=== PATIENT | female | born 1980 | race Caucasian/White ===

== ENCOUNTER → 2018-07-29 13:55 | Outpatient (CLI) | payer SELFPAY ==
[2018-08-03 14:25] LABS: HPV Reflexed? NOT INDICATED
== END ==
PROVIDERS: Visit Provider Obstetrics & Gynecology
DX: Z12.4 Encounter for screening for malignant neoplasm of cervix (principal)
CPT/HCPCS: 87624; 88175; G0145

== ENCOUNTER → 2019-04-15 13:42 | Outpatient (CLI) | payer SELFPAY ==
--- NOTE | 2019-04-15 11:30 | EMB_PTH ---
PATIENT: KUSHAL MONTES LOC: [facility] U#:[id number] AGE/SX: 44/F ROOM: RE04/15/[address]: Dr. Richar Milligan MD : 1980 BED: DIS: SPEC #: [id number] RECD: 04/15/19 13:40 STATUS: NELSY SCOOTER #: [id number] LYNSEY: 04/15/19 11:[address]: Richar Milligan DEPT: SURGICAL PATHOLOGY RECD BY: Miguelito Chau ENTERED: 04/15/19 13:48 SP TYPE: ENDOM BX/C LUZ DR: Haily Primary Care Phys Tissues: Endometrium, NOS Procedures: Surgery Specimen Level IV HEADER OPERATION: Endometrial biopsy PRE-OP DIAGNOSIS: N92.0 TISSUE SUBMITTED: Endometrial biopsy MICROSCOPIC DIAGNOSIS Endometrial biopsy: Proliferative endometrium. SJ:yael 04/16/19 MICROSCOPIC DESCRIPTION Slides are reviewed. GROSS DESCRIPTION Received in fixative is one container labeled with the patient's name and designated EM biopsy. The specimen consists of multiple fragments of hemorrhagic soft tissue that in aggregate measure 3 x 2.5 x 0.3 cm. The specimen is totally submitted in one cassette. / SJ:rg 04/15/19 TC:4 CPT: 90255
== END ==
PROVIDERS: Referring Provider Obstetrics & Gynecology; Visit Provider Obstetrics & Gynecology
DX: N92.0 Excessive and frequent menstruation with regular cycle (principal)
CPT/HCPCS: 88305

== ENCOUNTER 2019-05-13 07:05 | Day surgery (SDC) | payer SELFPAY ==
[2019-05-07 11:22] LABS: Hematocrit 39.3 % (37-47); Mean Corp Hgb Conc 33.1 g/dL (32-36); Mean Corpuscular Hgb 28.6 pg (27.0-32.0); Mean Corpuscular Volume 86.6 fL (81-99); Mean Platelet Vol. 8.9 fl (6.2-12.0); Platelet Count 313 K/mm3 (150-450); RBC Distribution Width CV 14.2 % (11.6-14.6); RBC Distribution Width SD 44.6 fl (35.1-43.9); Red Blood Count 4.54 M/mm3 (4.2-5.4); White Blood Count 8.4 K/mm3 (4.4-11.0)
[2019-05-07 11:35] LABS: International Normalized Ratio 1.1; Prothrombin Time (Protime)PT. 13.5 SECONDS (11.7-14.9)
[2019-05-07 11:36] LABS: Partial Thromboplast Time 32.9 Seconds (24.1-36.2)
[2019-05-07 12:21] LABS: Thyroid Stim Hormone (TSH) 1.89 uIU/mL (0.358-3.74)
--- NOTE | 2019-05-12 14:54 | PCM.HP.BLA ---
History and Physical Date of Admission: 05/13/19 Surgical History and Physical Shannan Suarez, a 38 year old female 5 0 1 0 5, presents for HTA, Hysteroscopy and D and C on May 13, 2019 at 8:30. -- Menorrhagia -- Heavy long Menses that started in June. Heavy Bleeding, clots which began 1 year. Shannan claims it started gradually and has been present worsened in last 2 months. It occurs with menses. It is located in the vagina. Shannan characterizes it to be non-radiating. Shannan characterizes the quality heavy bleeding,clots,cramping,. Severity is moderate and not improving; Additional comments are: u/s 08/02 without polyps or submucous fibroids. MEDICATIONS HISTORY: Current medications prescribed by our practice are: 1. Provera 10 mg tablet, One pill by mouth once a day for the last 10 days of each month Patient is also takin. buspirone 10 mg tablet, 1 to 3 times daily 2. risperidone 2 mg tablet, One pill by mouth once a day at hs 3. sertraline 100 mg tablet, Two po once daily 4. trazodone 100 mg tablet, One pill by mouth once a day at hs ALLERGIES: Phenergen, Very fidgety, Codeine, Fidgety, Codeine, Irritability, Phenergan and Irritability Infections - Chicken pox Illnesses - none Accidents - None Hospitalizations - Childbirth Review of Systems: GENERAL - Denies fever, or chills SKIN - Denies skin changes EYES - Denies visual changes EARS - Denies difficulty hearing NOSE - Denies nasal congestion or bleeding MOUTH - Denies sore throat or difficulty swallowing NECK - Denies pain or swelling RESPIRATORY - Denies shortness of breath or wheezing CARDIOVASCULAR - Denies palpitations or chest pain GASTROINTESTINAL - Denies nausea, vomiting, diarrhea, constipation GENITOURINARY - Denies dysuria, frequency of urination, incontinence of urine MUSCULOSKELETAL - Denies joint or muscle pain NEUROLOGICAL - Denies localized numbness or weakness PSYCHIATRIC - Denies depression or anxiety ENDOCRINE - Denies heat or cold intolerance, weight loss or gain HEMATO-IMMUNOLOGIC - Denies excesive bleeding with cuts SOCIAL HISTORY: Alcohol Use - None Smoking - Never Diet - no special diet Lifestyle - moderate stress lifestyle and Exercise - very active Seat Belt Use - always Employer - Director Of Direct Marketing Illicit Drug Use - None Sexual Activity - Spouse-Sig Other Name - Price Spouse-Sig Other Occupation - [employer] Children Name(s) - Kevon, Summer, Oriana, Rudolph Malcolm(16) Control - Prior Tubal FAMILY HISTORY: Mother: DM II and Hypertension. MENSTRUAL HISTORY: LMP Known?- DefiniteAmount/Duration - 2 weeks, Regularity - Irregular and missed periods, Frequency - variable days, LMP - 04/15/19, Age Onset Menarche - 14 PAST PREGNANCIES: Total Pregnancies - 6; Full Term Pregnancies - 5; Premature - 0; Abortions, Induced - 0; Abortions, Spontaneous - 1; Ectopics - 0; Multiple Births - 0; Living Children - 5 SURGICAL HISTORY: 1. 09/13/2013 ; Richar Milligan M.D. - 2. 08/04/2007 ; Dr. Hurst - 3. 06/12/2006 ; Dr. Hurst - 4. T and A, 1997 ; Dr. Lorenzana - 5. Appendectomy, 2005 ; Emory Koch - 6. 09/17/2011 ; Richar Milligan M.D. - 7. 07/11/2015 and Tubal ; Richar Milligan M.D. - PHYSICAL EXAM BP- 104/78 Sitting, Right arm, large cuff Temp- 97.6 Taken Orally Weight- 218.95501 lbs Height- 62.75 inch BMI:39.15 CONSTITUTIONAL - NAD, well nourished, and well developed SKIN - No rash, lesions, or ulcers HEENT - Normocephalic, PERRLA, EOMI NECK - No nodes, no nuchal rigidity and thyroid normal size and texture LYMPH NODES - Palpation of lymph nodes in neck and groins within normal limits LUNGS - CTA x2 without wheezes, crackles or rales CARDIAC - Regular rate and rhythm without rubs, murmurs, or gallops ABDOMEN - Without hepatosplenomegaly, distention, masses, rebound, or guarding; normal bowel sounds; no hernias EXTREMITIES - No edema or calf tenderness NEUROLOGICAL - Cranial nerves II-XII grossly intact PSYCHIATRIC - A and O to time, place, person, mood and affect External Genital Vagina - non-tender without lesions Urethra/Urethral Meatus - non-tender Bladder - non-tender Vagina - vaginal clifford are pink and moist without loss of rugae and no evidence of atropy Cervix - without cervical motion tenderness and has normal size and features without evident lesions Uterus - multiparous size 6 cm & wt 75-125 g Adnexa - clear without masses or tenderness ASSESSMENT/PLAN: 1. Menorrhagia Heavy irregular menses likely due to anovulatory bleeding. Discussed options including intermittant Provera withdrawal vs proceeding with endometrial ablation. Desires proceeding with surgery. Discussed RBAs. EMBx and TSH OK.
[2019-05-13] VITALS (17 sets, daily range): BP systolic 95–119; BP diastolic 52–77; PULSE 55–90; RESP 16–18; TEMP 36.3–36.7; O2SAT 90–97; BMI 36.8
[2019-05-13 07:36] LABS: Internal QC Validated? YES +Cl - CLEAR BKGD; Pregnancy, Urine Negative Negative
[2019-05-13] MEDS: Lactated Ringers 1,000 ML 100 ML IV (07:38)
--- NOTE | 2019-05-13 08:38 | DCINST_ITS ---
Discharge Diet: No Restrictions Discharge Activity: Return to Normal Activity, May Shower, May Take a Tub Bath May resume sexual activity in: 4 weeks Call your doctor if you observe: Fever of 101 or Higher, Inability to urinate, Inability to have a bowel movement, Using more than one pad per hour Allergies/Adverse Reactions: Allergies codeine Adverse Reaction (Verified 05/05/19 13:59) not myself promethazine [From Phenergan] Adverse Reaction (Verified 05/05/19 13:59) not myself Medications to take at Discharge Risperidone [Risperdal] 3 mg PO QHS 05/05/19 Sertraline HCl [Zoloft] 200 mg PO DAILY 05/05/19 Oxycodone [Oxyir] 5 mg PO Q6H PRN PRN 7 Days #10 tab 05/13/19 The following prescriptions were given: Oxycodone [Oxyir] 5 mg PO Q6H PRN PRN 7 Days #10 tab PRN Reason: Pain Score 6-10/10 Transmission Status: Sent to [place], [place] Primary Care Physician: Ariel Jacobsen MD [Primary Care Provider] - Test Results: Test results from this visit will be discussed in further detail at your follow- up appointment, if applicable. Please Follow Up With: Richar Milligan MD When: 3 to 4 weeks
--- NOTE | 2019-05-13 08:39 | OP.PCM_ITS ---
Report of Operation Date of Procedure: 05/13/19 Pre-Operative Diagnosis: Menorrhagia Post-Operative Diagnosis: Menorrhagia Surgery/Procedure Performed:: Diagnostic Hysteroscopy, Dilation and Curettage, Hydrothermal Ablation Description of Surgical Findings:: 14 cm endometrial cavity without polyps or fibroids. Uterus sounded to 12 cm. Long cervix. Cervix high in vagina which would make laparoscopic-assisted vaginal hysterectomy technically difficult but robotic assisted vaginal hysterectomy likely feasible if hysterectomy were necessary. Type of Anesthesia:: General - LMA Anesthesiologist: Jb Chen Specimen's removed: Endometrial curettings Estimated Blood Loss (mL): Minimal Fluids Replaced: Crystalloid Description of Procedure: Surgeon: Richar Milligan MD, FACOG Indication: This is a 38 year old patient who has been having problems with extremely heavy menses. Conservative measures have not been helpful. She had a prior tubal ligation. Endometrial sampling was benign and pelvic ultrasound showed that ablation may be helpful. Pt has been counseled regarding the ris ks, benefits and alternatives of this procedure and all questions answered. She understands that only about half of patients will have amenorrhea after this procedure. Procedure: Patient taken to the operating room where after induction of general anesthesia the patient was prepped and draped in the usual sterile fashion. Bladder was drained of urine with a catheter. Anterior cervix grasped and cervix was dilated to about 17 [place] Islander size. Hysteroscopic hydrothermal ablation (HTA) unit was place in the cervix and the above findings were noted. HTA unit was removed and the uterus was gently curretted removing all contents. An HTA ablation cycle was then carried out at about 90 degrees Centigrade for 10 minutes with virtually no fluid loss during the procedure. It was necessary to place a tenaculum on the posterior aspect of the cervix to completely seal the ablation unit. After an appropriate cool down the HTA unit was removed with minimal bleeding noted. The patient tolerated the procedure well and was taken to the recovery room in satisfactory condition. Sponge, instruments and needle counts were all correct. There were no apparent complications of the surgery. Cefotan 2 gms IV was given prior to the procedure. Grafts/Implants Used: None - Complications None - Admit VTE Documentation VTE Present on Admission: Yes VTE Mechan Device Prophylaxis: SCD's
--- NOTE | 2019-05-13 08:40 | EMB_PTH ---
PATIENT: KUSHAL MONTES [place] [facility] [place] U[place][id number] AGE/SX: 38/F ROOM: RE05/13/[address]: Dr. Richar Milligan MD : 1980 BED: DIS: 05/13/2019 SPEC #: [id number] RECD: 05/13/19 13:02 STATUS: NELSY SCOOTER #: [id number] LYNSEY: 05/13/19 08:[address]: Richar Milligan DEPT: SURGICAL PATHOLOGY RECD BY: Miguelito Chau ENTERED: 05/13/19 13:22 SP TYPE: ENDOM BX/C LUZ DR: Dr. Ariel Jacobsen MD Tissues: Endometrium, NOS Procedures: Surgery Specimen Level IV HEADER OPERATION: Hysteroscopy, D & C hydroablation PRE-OP DIAGNOSIS: Menorrhagia TISSUE SUBMITTED: Endometrial curettings MICROSCOPIC DIAGNOSIS Endometrial curettings: Fragments of benign endometrial polyp with simple endometrial hyperplasia without atypia. Fragments of endometrial tissue with mildly disordered proliferative endometrium. See comment. AMINA:yael 05/14/19 COMMENT Please make reference to previous specimen ([id number]) endometrial biopsy with diagnosis of proliferative endometrium. Case has been reviewed in consultation with Dr. Darden who concurs with the above diagnosis. IDC:AM MICROSCOPIC DESCRIPTION Slides are reviewed. GROSS DESCRIPTION Received in fixative is one container labeled with the patient's name and designated endometrial curettings. The specimen consists of multiple irregular fragments of hemorrhagic soft tissue mixed with blood clot that in aggregate measure 5 x 3 x 0.3 cm. Also present in the container are two pieces of esteban-pink polyp measuring 2.5 x 1 x 1 cm and 2 x 1 x 0.3 cm. Cassette 1 contains the smaller polyp and cassette contains the bisected polyp. The entire specimen is submitted in two cassettes. / AMINA:yael 05/13/19 TC: 5 CPT: 50700
[2019-05-13] MEDS: oxyCODONE 5 MG Tablet PO (11:58)
== END 2019-05-13 12:25 | disposition home or self-care (01) ==
LOC: SDC 07:09 → AC 07:09
PROVIDERS: Anesthesiology; PCP Family Medicine; Referring Provider Obstetrics & Gynecology; Visit Provider Obstetrics & Gynecology
PROC: 0U5B8ZZ Destruction of Endometrium, Via Natural or Artificial Opening Endoscopic (ICD-10-PCS; CPT 58563; principal; 2019-05-13 08:25)
DX: N85.01 Benign endometrial hyperplasia (principal); N84.0 Polyp of corpus uteri; Z88.8 Allergy status to other drugs, medicaments and biological substances; Z88.5 Allergy status to narcotic agent; Z79.899 Other long term (current) drug therapy
CPT/HCPCS: 00952; 58563; 36415; 81025; 84443; 85027; 85610; 85730; 86850; 86900; 86901; 88305; J7120; J2405

== ENCOUNTER → 2020-10-24 | Outpatient (CLI) | payer SELFPAY ==
[2019-05-13 07:32] VITALS: BMI 36.8
[2020-10-28 12:51] LABS: HPV Reflexed? NOT INDICATED
== END | disposition home or self-care (01) ==
LOC: LABSPEC 10-25 08:53
PROVIDERS: PCP Family Medicine; Visit Provider Obstetrics & Gynecology
DX: Z12.4 Encounter for screening for malignant neoplasm of cervix (principal)
CPT/HCPCS: 88175; G0145

== ENCOUNTER → 2020-11-29 11:23 | Outpatient (CLI) | payer OTHER, SELFPAY ==
[2020-11-29 12:19] LABS: Hematocrit 38.8 % (37-47); Hemoglobin 13.3 g/dL (12.0-15.0)
== END ==
PROVIDERS: PCP Family Medicine; Visit Provider Obstetrics & Gynecology
DX: N92.0 Excessive and frequent menstruation with regular cycle (principal)
CPT/HCPCS: 36415; 85014; 85018

== ENCOUNTER 2020-12-11 15:33 | Observation (INO) | payer SELFPAY ==
[2019-05-13 07:32] VITALS: BMI 36.8
[2020-12-05 11:47] LABS: Hematocrit 40.4 % (37-47); Hemoglobin 13.3 g/dL (12.0-15.0); Mean Corp Hgb Conc 32.9 g/dL (32-36); Mean Corpuscular Hgb 30.6 pg (27.0-32.0); Mean Corpuscular Volume 92.9 fL (81-99); Mean Platelet Vol. 8.9 fl (6.2-12.0); Platelet Count 512 K/mm3 (150-450); RBC Distribution Width CV 13.5 % (11.6-14.6); RBC Distribution Width SD 45.1 fl (35.1-43.9); Red Blood Count 4.35 M/mm3 (4.2-5.4); White Blood Count 9.8 K/mm3 (4.4-11.0)
[2020-12-05 11:54] LABS: International Normalized Ratio 1.1; Prothrombin Time (Protime)PT. 13.4 SECONDS (11.7-14.9)
[2020-12-05 11:55] LABS: Partial Thromboplast Time 28.8 Seconds (24.1-36.2)
[2020-12-05 12:13] LABS: Magnesium 2.5 mg/dL (1.6-2.6)
[2020-12-06 09:51] LABS: Creatinine, Serum 0.78 mg/dL (0.55-1.02); EST Glomerular Filtration Rate 88 mL/min (>60); Est Glom Filt Rate - Afr Amer 107 mL/min (>60)
--- NOTE | 2020-12-08 13:48 | PCM.HP.BLA ---
History and Physical Date of Admission: 12/11/20 Surgical History and Physical Shannan Suarez, a 40 year old female 5 0 1 0 5, presents for RAVH/BS on December 11, 2020 at 7:30. -- Heavy Menses; Menorrhagia -- Heavy long Menses that started in June. Patient has a history of simple endometrial hyperplasia noted at the time of her endometrial ablation. Patient denies any intermenstrual spotting. Shannan is here for preop RAVH/BS. Menses long and heavy, used aygestin taper. Heavy Bleeding, clots which began 1 year ago. Shannan claims it started gradually and has been present worsened in last 2 months. It occurs with menses. It is located in the vagina. Shannan characterizes the quality heavy bleeding,clots,cramping. Severity is moderate and not improving. MEDICATIONS HISTORY: Current medications prescribed by our practice are: 1. Aygestin 5 mg tablet, taper instructions called to pharmacy Patient is also takin. risperidone 2 mg tablet, One pill by mouth once a day at hs 2. sertraline 100 mg tablet, Two po once daily 3. trazodone 100 mg tablet, One pill by mouth once a day at hs ALLERGIES: Phenergen, Very fidgety, Codeine, Fidgety, Codeine, Irritability, Phenergan and Irritability Infections - Chicken pox Illnesses - none Accidents - None Hospitalizations - Childbirth Review of Systems: GENERAL - Denies fever, or chills SKIN - Denies skin changes EYES - Denies visual changes EARS - Denies difficulty hearing NOSE - Denies nasal congestion or bleeding MOUTH - Denies sore throat or difficulty swallowing NECK - Denies pain or swelling RESPIRATORY - Denies shortness of breath or wheezing CARDIOVASCULAR - Denies palpitations or chest pain GASTROINTESTINAL - Denies nausea, vomiting, diarrhea, constipation GENITOURINARY - Denies dysuria, frequency of urination, incontinence of urine MUSCULOSKELETAL - Denies joint or muscle pain NEUROLOGICAL - Denies localized numbness or weakness PSYCHIATRIC - Denies depression or anxiety ENDOCRINE - Denies heat or cold intolerance, weight loss or gain HEMATO-IMMUNOLOGIC - Denies excesive bleeding with cuts SOCIAL HISTORY: Alcohol Use - None Smoking - Never Diet - no special diet Lifestyle - moderate stress lifestyle and Exercise - very active Seat Belt Use - always Employer - Automobile Damage [employer] Illicit Drug Use - None Sexual Activity - Spouse-Sig Other Name - Price Spouse-Sig Other Occupation - [employer] Children Name(s) - Kevon, Summer, Oriana, Rudolph Malcolm(16) Control - Prior Tubal FAMILY HISTORY: Mother: DM II and Hypertension. MENSTRUAL HISTORY: LMP Known?- AblationAmount/Duration - excess amount and 7 to 10 days, Regularity - Irregular and missed periods, Frequency - variable days, LMP - 11/16/20, Age Onset Menarche - 14 PAST PREGNANCIES: Total Pregnancies - 6; Full Term Pregnancies - 5; Premature - 0; Abortions, Induced - 0; Abortions, Spontaneous - 1; Ectopics - 0; Multiple Births - 0; Living Children - 5 SURGICAL HISTORY: 1. 09/13/2013 ; Richar Milligan M.D. - 2. 08/04/2007 ; Dr. Hurst - 3. 06/12/2006 ; Dr. Hurst - 4. T and A, 1997 ; Dr. Lorenzana - 5. Appendectomy, 2005 ; Emory Koch - 6. 09/17/2011 ; Richar Milligan M.D. - 7. 05/13/2019 dx hysteroscopy, D and C, HTA ; Richar Milligan M.D. - 8. 07/11/2015 and Tubal ; Richar Milligan M.D. - PHYSICAL EXAM BP- 136/84 Sitting, Right arm, regular cuff Weight- 198.76423 lbs Height- 62.75 inch BMI:35.4 CONSTITUTIONAL - NAD, well nourished, and well developed SKIN - No rash, lesions, or ulcers HEENT - Normocephalic, PERRLA, EOMI NECK - No nodes, no nuchal rigidity and thyroid normal size and texture LYMPH NODES - Palpation of lymph nodes in neck and groins within normal limits LUNGS - CTA x2 without wheezes, crackles or rales CARDIAC - Regular rate and rhythm without rubs, murmurs, or gallops BREAST - No dominant masses, no tenderness, no axillary adenopathy, no nipple discharge, no skin changes ABDOMEN - Without hepatosplenomegaly, distention, masses, rebound, or guarding; normal bowel sounds; no hernias EXTREMITIES - No edema or calf tenderness NEUROLOGICAL - Cranial nerves II-XII grossly intact PSYCHIATRIC - A and O to time, place, person, mood and affect External Genitial Vagina - non-tender without lesions Urethra/Urethral Meatus - non-tender Bladder - non-tender Vagina - vaginal clifford are pink and moist without loss of rugae and no evidence of atropy and blood in vagina Cervix - without cervical motion tenderness and has normal size and features without evident lesions Uterus - multiparous size 6 cm & wt 75-125 g Adnexa - clear without massess or tenderness ASSESSMENT/PLAN: Menorrhagia Patient is status post endometrial ablation and had simple hyperplasia at the time of her D and C at the time of ablation. We discussed options for treatment and the patient desires that we proceed with hysterectomy. Plan robotic assisted vaginal hysterectomy and bilateral salpingectomy. Discussed risks, benefits, and alternatives and all questions were answered.
[2020-12-11] VITALS (35 sets, daily range): BP systolic 110–148; BP diastolic 51–91; PULSE 84–124; RESP 12–24; TEMP 36.6–37.5; O2SAT 92–99; BMI 36.6
--- NOTE | 2020-12-11 | HYST_PTH ---
PATIENT: KUSHAL MONTES LOC: [facility] U#:[id number] AGE/SX: 40/F [place] [facility] [id number] RE12/11/[address]: Dr. Richar Milligan MD : 1980 BED: 1 DIS: 12/12/2020 SPEC #: [id number] RECD: 12/11/20 13:12 STATUS: NELSY REIsaias #: [id number] LYNSEY: 12/11/20 00:[address]: Richar Milligan DEPT: SURGICAL PATHOLOGY RECD BY: Aleksandar Blackman ENTERED: 12/11/20 13:12 SP TYPE: HYSTERECT OTHR DR: Dr. Ariel Jacobsen MD Tissues: Uterus, NOS Procedures: Surgery Specimen Level V HEADER OPERATION: ERAS, lap robotic hysterectomy, bilateral salpingectomy PRE-OP DIAGNOSIS: Menorrhagia TISSUE SUBMITTED: Cervix, uterus and bilateral fallopian tubes MICROSCOPIC DIAGNOSIS Cervix, uterus and bilateral fallopian tubes, hysterectomy and bilateral salpingectomy: Cervix ? mild chronic inflammation. - Reactive epithelial changes. Endometrium ? weakly proliferative endometrium. Myometrium ? intramural leiomyomas (largest measuring 1 cm in greatest dimension). - Focal adenomyosis. Bilateral fallopian tubes - no pathologic diagnosis. SJ:yael 12/12/2020 COMMENT Please make reference to previous specimen ([id number]) endometrial curettings with diagnosis of ?fragments of benign endometrial polyp with simple endometrial hyperplasia without atypia and fragments of endometrial tissue with mildly disordered proliferative endometrium.? MICROSCOPIC DESCRIPTION Slides are reviewed. GROSS DESCRIPTION Received in fixative is one container labeled with the patient's name and designated uterus, cervix and bilateral fallopian tubes. The specimen consists of a hysterectomy specimen consisting of uterus with cervix and attached bilateral fallopian tubes. The uterus with cervix weighs 195 gm and measures 11.5 x 8 x 5.5 cm. The serosal surface is esteban, glistening. The ectocervical mucosa is unremarkable. The external os is circular in contour. The endocervical canal measures 4 cm in length and the endocervical mucosa is unremarkable. The triangular endometrial cavity measures 7 cm in length and up to 3 cm in width. The endometrium is without any mass lesion and measures 0.1 cm in thickness. Sections of the uterine wall reveal multiple nodular masses. The largest mass measures 1 cm in greatest dimension. The uterine wall measures up to 2.5 cm in thickness. Sections of these masses reveal esteban whorled cut surfaces without areas of hemorrhage, necrosis or cystic degeneration. The right fallopian tube measures 8 cm in length and 0.7 cm in diameter. The fimbrial end is identified. The fallopian tube is interrupted in the middle consistent with previous tubal occlusion. A Filshie clip is also noted and appears intact. Sections reveal unremarkable cut surfaces. The left fallopian tube measures 7 cm in length and 0.5 cm in diameter. It is interrupted in the middle consistent with previous tubal occlusion. No Filshie clip is identified in this fallopian tube. Melangeur Operator sections are submitted in nine cassettes as follows: 1??anterior cervix, 2 - posterior cervix, 3 & 4 - anterior uterine wall, 5 & 6 - posterior uterine wall, 7??nodular masses, 8 - right fallopian tube, 9 - left fallopian tube. / AMINA:yael 12/11/20 TC:1 CPT: 17563
[2020-12-11 06:14] LABS: Internal QC Validated? YES +Cl - CLEAR BKGD; Pregnancy, Urine Negative Negative
[2020-12-11] MEDS: Acetaminophen 500 MG Tablet 1000 MG PO ×2 (06:16→18:16)
[2020-12-11] MEDS: Gabapentin 600 MG Tablet PO (06:16)
[2020-12-11] MEDS: Lactated Ringers 1,000 ML 40 ML IV (06:22)
[2020-12-11 07:00] LABS: Bedside Glucose 102 mg/dL (70-110)
[2020-12-11] MEDS: Cefazolin 2 GM in 0.9% Normal Saline 100 ML IV (07:24)
--- NOTE | 2020-12-11 07:36 | OP.PCM_ITS ---
Report of Operation Date of Procedure: 12/11/20 Pre-Operative Diagnosis: Menorrhea Status Post Endometrial Ablation, Simple End ometrial Hyperplasia Post-Operative Diagnosis: Menorrhea Status Post Endometrial Ablation, Simple Endometrial Hyperplasia Surgery/Procedure Performed:: Robotic Assisted Vaginal Hysterectomy and Bilateral Salpingectomy Description of Surgical Findings:: 12 cm uterus with normal-appearing fallopian tubes and ovaries. Adhesions of the anterior abdominal wall to the uterus. Filshie clips from prior tubal ligation. Surgeon: Richar Milligan classifier operator: Kel Ocampo Type of Anesthesia: General (Endotracheal) Anesthesiologist: Claudia Pennington Specimen's removed: Uterus and bilateral fallopian tubes Drains: Bella to straight drain Estimated Blood Loss (mL): Minimal Fluids Replaced: Crystalloid Description of Procedure: Surgeon: Richar Milligan MD, FACOG Indication: This is a 40 year old patient who has been having problems with heavy periods despite previous endometrial ablation. She also had a previous C- section and was noted to have simple endometrial hyperplasia at the time of her ablation. Conservative measures have not been helpful. The patient has been counseled regarding the risks, benefits and alternatives of this procedure including the possibility of bleeding, infection, and injury to surrounding structures such as bowel bladder and all questions were answered. She understands that if BSO is needed that she will need to be on HRT for an indefinite period of time. Procedure: Pt taken to the operating room where, after induction of general anesthesia, the patient was prepped and draped in the usual sterile fashion and placed on a non-slip Huggy-u-vac device. Trendelenburg test was satisfactory. Bladder was drained of urine with a Bella catheter which was left in place. Anterior cervix grasped and cervix was dilated to about 3-4 mm. Uterus sounded to 8 cms. 0-Vicryl suture was placed at the 3:00 and 9:00 position of the cervix. A small Advincula Actuarial Director Uterine Manipulator was then placed in the uterus and attention was turned to the laparoscopic portion of the procedure. Ropivocaine 0.5% was injected approximately 3 cm superior to the umbilicus and an 8 mm robotic camera port was introduced directly with intraperitoneal placement confirmed with CO2 insufflation. 8 mm robotic side ports were introduced under direct visualization approximately 11 cm lateral and 2 cm inferior to the umbilical port. A 5 mm left upper quadrant port was introduced and airseal insufflation with CO2 was started. The above findings were noted. Robot was docked without difficulty and attention turned to the robotic portion of the procedure. Approximately 30 cc of Ropivicaine was used. Bilateral mesosalpinx were ligated with 35 booth bipolar coagulation to the level of the round ligament. The posterior aspect of the cervix was identified and then opened for about 1 cm using 25 watt monopolar cautery. Bladder flap was opened and divided to the level of the round ligaments using monopolar cautery. Progressive bites were then ligated on each side of the cervix with 35 booth bipolar cautery to the uterine arteries. The anterior vaginal mucosa was entered and cervix circumscribed with monopolar cautery. Uterus and attached tubes were removed through the vagina. Vaginal cuff was closed first with 0- Vicryl Shoshana stitches placed at each angle followed by closure of the mid-cuff with 0-Monocryl V-lock suture in two layers. Pelvis was copiously irrigated with saline and the right ureter was noted to peristalse. Arcelia was placed across the vaginal cuff to help with postoperative hemostasis. Robot was undocked and trocars were removed with as much gas as possible. Incisions were closed with 4-0 Monocryl subcuticular sutures and incisions covered with steri-strips. The patient tolerated the procedure well and was taken to the recovery room in satisfactory condition. Sponge, instruments and needle counts were all correct. There were no apparent complications of the surgery. Ancef 2 gms IV was given prior to the procedure. Grafts/Implants Used: None Complications None Admit VTE Documentation VTE Present on Admission: Yes VTE Mechan Device Prophylaxis: SCD's
--- NOTE | 2020-12-11 07:41 | PCM.DC ---
Discharge Instructions Diet Discharge Diet: No restrictions Activity Discharge Activity: May Shower and May Take a Tub Bath May resume sexual activity in: 6 weeks (nothing in the vagina.) Lifting Restrictions: 25 pounds for 6 weeks. Additional Activity Instructions:: Nothing in the vagina for 6 weeks please; no lifting more than 20-25 lbs for 6 weeks. Use Ibuprophen 800 mg orally every 8 hours as needed for pain. Can also add Tylenol 1000 mg every 8 hours if needed for pain. If Ibuprophen and Tylenol are not effective then use the Oxycodone but keep in mind it can cause serious constipation issues. Drink lots of water. Call if bleeding more than a pad per hour. Use the colace as constipation is a big issue after this type of surgery. Steps and walking are OK. Activity is encouraged but do not over do it !! Dressing / Incision Call your doctor if your incision/area has: Continuous Slow Oozing, Sudden Increased Bleeding, Increased Pain/ Swelling, Increased Redness and Foul Smelling Discharge Call your doctor if you observe: Fever of 101 or Higher, Inability to urinate, Inability to have a bowel movement, Using more than 1 pad per hour and - (Some vaginal bleeding may be noted for up to 4-8 weeks.) Cleanse incision/area with: - (Let the soapy water run over your incision, rinse and pat dry.) Additional Dressing/Incision Instructions:: The white strips (Steri Strips) on your incisions will fall off on their own. If they fall off and it bothers you it is okay to put Band-Aids across the incisions. Follow Up Care Please Follow Up With: Richar Milligan MD When: Call [phone] for an appointment to be seen in 2 weeks. Test Results: Test results from this visit will be discussed in further detail at your follow-up appointment, if applicable. Discharge Plan Admission Primary Reason for Your Visit: Robotic Vaginal Hysterectomy Attending Provider: Richar Milligan Primary Care Provider: Ariel Jacobsen Discharge Orders/Prescriptions Prescriptions: New oxycodone 5 mg capsule 5 mg PO Q6H PRN (Reason: pain) 7 Days Qty: 10 RF: 0 docusate sodium 100 mg tablet 100 mg PO BID PRN (Reason: constipation) Qty: 60 RF: 1 Continued sertraline 100 MG tablet 200 mg PO DAILY RF: 0 iron 40 mg Capsule 45 mg PO DAILY RF: 0 Discontinued norethindrone acetate 5 mg Tablet 10 mg PO BID RF: 0 Referrals / Follow Up: Ariel Jacobsen MD [Primary Care Provider] - Disposition Disposition (needs filled in before D/C Order can be placed): Home, Self Care
[2020-12-11] MEDS: Ropivacaine 0.5% 30 ML Vial (09:10)
[2020-12-11] MEDS: Ketorolac 30 MG/ML Syringe IV ×2 (09:51→18:17)
[2020-12-11] MEDS: Ondansetron 4 MG/2 ML Vial IV (09:58)
[2020-12-11 10:41] LABS: Bedside Glucose 181 mg/dL (70-110)
--- NOTE | 2020-12-11 11:48 | SUR.PHASEI ---
PATIENT IS MEETING CRITERIA EXCEPT SHE IS SATING AT 86% ON ROOM AIR. NO SHORTNESS OF BREATH NOTED.
--- NOTE | 2020-12-11 14:32 | CT_ITS ---
STUDY: CTA CHEST REASON FOR EXAM: Female, 40 years old. RULE OUT PE RADIATION DOSAGE (If Supplied By Facility): CTDIvol = ( 12.54 ) mGy, DLP = ( 440.84 ) mGycm TECHNIQUE: The examination was performed with the intravenous administration of IV 100mL Isovue-370. Post-processing of the angiographic images was performed, with multiplanar reformation and 3D reconstruction. Individualized dose optimization techniques were used for this CT. COMPARISON: None. FINDINGS: Normal enhancement of the main pulmonary artery and right and left pulmonary arteries. Normal enhancement of the bilateral peripheral pulmonary arteries. There is no demonstrated pulmonary embolism. Normal thoracic aorta and visualized great vessels. There is no demonstrated aortic dissection. Normal heart and pericardium. Normal mediastinum. Normal hilar regions. Fluid distended esophagus. Normal visualized trachea and bronchi. The lungs are under expanded. There are bandlike parenchymal changes most consistent with atelectasis of the bilateral lungs. Normal pleura. Normal chest wall structures. Normal osseous structures. There is air within the nondependent upper abdomen. CT/CTA Chest W/WO Contrast IMPRESSION: 1. Mild pneumoperitoneum of unknown cause. 2. No central or segmental pulmonary embolism. 3. Bibasilar atelectasis. 4. Fluid distended esophagus. Electronically Signed: Israel Falcon MD ([facility]) at 14:54 EDT , Service support ,
--- NOTE | 2020-12-11 15:32 | PCM.PN.OB ---
Subjective Subjective Patient doing well from a surgical standpoint about 6 hours postop. She was having some shortness of breath so a CT scan was done which showed no evidence of pulmonary embolus. O2 sats stable but requires 2 L of oxygen to keep sats at 96%. Given this, will monitor overnight in anticipation of going home tomorrow. Plan aggressive pulmonary toilet tonight. Objective Data Objective Data Vital Signs: Vital Signs Temp Pulse Resp BP Pulse Ox 99.5 F H 102 H 16 115/69 94 12/11/20 13:30 12/11/20 15:15 12/11/20 15:15 12/11/20 15:15 12/11/20 15:15 Oxygen Flow Rate (L/min) 2 Oxygen Delivery Method Nasal Cannula Weight: 200 lb Body Mass Index (BMI) 36.6 Intake & Output: Intake and Output for Last 24 Hours 12/09/20 12/10/20 12/11/20 23:59 23:59 23:59 Intake Total 215.5 / 215.5 Output Total 400 / 400 Balance -184.5 / -184.5 Lab / Micro Data Result Diagrams: 12/05/20 11:06 12/05/20 11:06 Labs: Laboratory Results - last 24 hr 12/11/20 06:00: Urine Test Negative 12/11/20 06:03: POC Glucose 102 12/11/20 10:32: POC Glucose 181 H Micro: Microbiology 12/05/20 11:00 Interface Orders SARS-CoV-2 Antigen (Rapid) - Final Radiography Diagnostic Testing: Radiology Impression Chest CTA 12/11/20 14:32 IMPRESSION: 1. Mild pneumoperitoneum of unknown cause. 2. No central or segmental pulmonary embolism. 3. Bibasilar atelectasis. 4. Fluid distended esophagus. Electronically Signed: Israel Falcon MD ([facility]) at 14:54 EDT , Service support ,
[2020-12-11] MEDS: Ipratropium 0.5 MG/2.5 ML SOLUTION INHALATION (16:02)
[2020-12-11] MEDS: 0.9% Saline Lock 10 ML Syringe IV (18:17)
[2020-12-11] MEDS: Docusate Sodium 100 MG Capsule PO (22:21)
[2020-12-11] MEDS: oxyCODONE 5 MG Tablet PO (22:21)
[2020-12-12 00:20] VITALS: BP 114/77; PULSE 88; RESP 18; TEMP 36.4; O2SAT 98
[2020-12-12] MEDS: Ketorolac 30 MG/ML Syringe IV ×2 (00:22→05:59)
[2020-12-12] MEDS: Acetaminophen 500 MG Tablet 1000 MG PO ×2 (00:22→05:58)
[2020-12-12] MEDS: 0.9% Saline Lock 10 ML Syringe IV ×2 (00:22→05:59)
[2020-12-12 00:36] VITALS: O2SAT 97
[2020-12-12 04:20] VITALS: PULSE 82; O2SAT 94
[2020-12-12 05:56] VITALS: BP 106/68; PULSE 87; RESP 16; TEMP 36.4; O2SAT 97
[2020-12-12 07:00] LABS: Creatinine, Serum 0.77 mg/dL (0.55-1.02); EST Glomerular Filtration Rate 89 mL/min (>60); Est Glom Filt Rate - Afr Amer 108 mL/min (>60); Estimated Creatinine Clearance 78.35 ml/min
[2020-12-12 07:03] LABS: Hematocrit 33.7 % (37-47); Hemoglobin 11.1 g/dL (12.0-15.0); Mean Corp Hgb Conc 32.9 g/dL (32-36); Mean Corpuscular Hgb 30.9 pg (27.0-32.0); Mean Corpuscular Volume 93.9 fL (81-99); Mean Platelet Vol. 8.7 fl (6.2-12.0); Platelet Count 356 K/mm3 (150-450); RBC Distribution Width CV 13.7 % (11.6-14.6); RBC Distribution Width SD 46.8 fl (35.1-43.9); Red Blood Count 3.59 M/mm3 (4.2-5.4); White Blood Count 11.4 K/mm3 (4.4-11.0)
--- NOTE | 2020-12-12 07:55 | PCS.PANDOC ---
PANDEMIC DOCUMENTATION INITIATED: Date: 10/30/2020 Time: 190
[2020-12-12] MEDS: oxyCODONE 5 MG Tablet PO (07:58)
[2020-12-12] MEDS: Docusate Sodium 100 MG Capsule PO (08:01)
[2020-12-12] MEDS: Sertraline 100 MG Tablet 200 MG PO (08:01)
[2020-12-12 08:39] VITALS: BP 107/68; PULSE 81; RESP 16; TEMP 37.2; O2SAT 95
--- NOTE | 2020-12-12 08:40 | PCM.PN.OB ---
Subjective Subjective Patient without complaints. Tolerating diet well. Positive flatus. O2 sats 97% on room air. Denies any shortness of breath or other respiratory symptoms. Objective Data Objective Data Wounds are clean, dry, intact. Good urine output. Hemoglobin and creatinine okay. Vital Signs: Vital Signs Temp Pulse Resp BP Pulse Ox 97.6 F L 87 16 106/68 97 12/12/20 05:56 12/12/20 05:56 12/12/20 05:56 12/12/20 05:56 12/12/20 05:56 Oxygen Flow Rate (L/min) 1 Oxygen Delivery Method Room Air Weight: 200 lb Body Mass Index (BMI) 36.6 Intake & Output: Intake and Output for Last 24 Hours 12/10/20 12/11/20 12/12/20 23:59 23:59 23:59 Intake Total 1215.5 / 1215.5 400 / 400 Output Total 1000 / 1000 500 / 500 Balance 215.5 / 215.5 -100 / -100 Lab / Micro Data Result Diagrams: 12/12/20 06:55 12/12/20 06:24 Labs: Laboratory Results - last 24 hr 12/11/20 10:32: POC Glucose 181 H 12/12/20 06:24: WBC Cancelled, Corrected WBC Cancelled, RBC Cancelled, Hgb Cancelled, Hct Cancelled, MCV Cancelled, MCH Cancelled, MCHC Cancelled, RDW Std Deviation Cancelled, RDW Coeff of Piero Cancelled, Plt Count Cancelled, MPV Cancelled, Diff Path Review Cancelled 12/12/20 06:24: Creatinine 0.77, Estim Creat Clear Calc 78.35, Est GFR (MDRD) Af Amer 108, Est GFR (MDRD) Non-Af 89 12/12/20 06:55: WBC 11.4 H, RBC 3.59 L, Hgb 11.1 L, Hct 33.7 L, MCV 93.9, MCH 30.9, MCHC 32.9, RDW Std Deviation 46.8 H, RDW Coeff of Piero 13.7, Plt Count 356, MPV 8.7 Micro: Microbiology 12/05/20 11:00 Interface Orders SARS-CoV-2 Antigen (Rapid) - Final Radiography Diagnostic Testing: Radiology Impression Chest CTA 12/11/20 14:32 IMPRESSION: 1. Mild pneumoperitoneum of unknown cause. 2. No central or segmental pulmonary embolism. 3. Bibasilar atelectasis. 4. Fluid distended esophagus. Electronically Signed: Israel Falcon MD ([facility]) at 14:54 EDT , Service support , Assessment & Plan (1) Menorrhagia: PLAN: Doing well postoperative day #1 status post robotic assisted vaginal hysterectomy and bilateral salpingectomy. O2 sats are stable on room air. Will discharge to home with routine instructions.
== END 2020-12-12 10:18 | disposition home or self-care (01) ==
LOC: MS2 12-12 08:50 → SDC 12-12 09:48 → MS2 12-12 09:48
PROVIDERS: Anesthesiology; Admitting Provider Obstetrics & Gynecology; PCP Family Medicine; Referring Provider Obstetrics & Gynecology; Visit Provider Obstetrics & Gynecology
PROC: 0UT90ZZ Resection of Uterus, Open Approach (ICD-10-PCS; CPT 58552; principal; 2020-12-11 07:10)
DX: D25.1 Intramural leiomyoma of uterus (principal); Z23 Encounter for immunization; N85.01 Benign endometrial hyperplasia; F41.9 Anxiety disorder, unspecified; F32.9 Major depressive disorder, single episode, unspecified; D64.9 Anemia, unspecified; Z79.899 Other long term (current) drug therapy
CPT/HCPCS: 00944; 58552; S2900; 36415; 71275; 81025; 82565; 82962; 83735; 85027; 85610; 85730; 86850; 86900; 86901; 87426; 88307; 96374; 96376; 99218; 99251; C9803; J7120; Q9967; 90686; A4216; G0378; G0463; J2405